=== PATIENT | female | born 1965 | race Caucasian/White ===

== ENCOUNTER 2018-11-22 07:47 | Emergency (ER) | payer OTHER ==
[2018-11-22] MEDS ORDERED: KETOROLAC 30 MG/ML VIAL IM STA (08:54)
[2018-11-22] MEDS ORDERED: DEXAMETHASONE 10 MG/ML VIAL PO STA (08:54)
[2018-11-22] MEDS ORDERED: CHERRY SYRUP 10 ML UDC PO ONE (08:54)
--- NOTE | 2018-11-22 08:57 | ED Physician Documentation ---
PD HPI BACK INJURY - Stated complaint Stated Complaint: BACK PX - History obtained from History obtained from: Patient - History of Present Illness Location: Left, Upper, Lower Type of injury: Fall Where injury occurred: Home Timing - onset: How many days ago (3) Timing - duration: Days (3) Timing - details: Abrupt onset, Still present Quality: Pain, Spasm, Sharp Improved by: Rest, Immobilization Worsened by: Moving, Palpating Associated symptoms: No: Fever, Weakness, Numbness, Incontinent of urine, Unable to urinate, Hematuria, Incontinent of stool Similar symptoms before: Has not had sx before Recently seen: Not recently seen - Additional information Additional information: 53-year-old previously healthy female was helping a friend carry a table when she tripped backwards and fell onto her back. She fell onto her buttocks and she is twisted her back she has pain in the left thoracolumbar area with spasm and she is unable to perform her duties at work. She does a lot of physical work. Review of Systems Constitutional: denies: Fever Eyes: denies: Decreased vision Ears: denies: Ear pain Nose: denies: Congestion Throat: denies: Sore throat Respiratory: denies: Cough GI: denies: Abdominal Pain, Nausea, Vomiting : denies: Dysuria, Frequency Skin: denies: Rash Musculoskeletal: reports: Back pain. denies: Neck pain Neurologic: denies: Generalized weakness, Focal weakness, Numbness PD PAST MEDICAL HISTORY - Past Medical History Past Medical History: No - Past Surgical History Past Surgical History: No - Present Medications Home Medications: Ambulatory Orders Medication Instructions Recorded Confirmed Cyclobenzaprine [Flexeril] 10 mg PO TID PRN #20 tablet 11/22/18 Hydrocodone/Acetaminophen 1 - 2 each PO Q6H PRN #14 tablet 11/22/18 [Hydrocodon-Acetaminophen 5-325] - Allergies Allergies/Adverse Reactions: Allergies Allergy/AdvReac Type Severity Reaction Status Date / Time No Known Drug Allergies Allergy Verified 11/22/18 07:53 - Social History Does the pt smoke?: Yes Smoking Status: Current every day smoker Does the pt drink ETOH?: Yes ETOH Use: Beer Does the pt have substance abuse?: No - Immunizations Immunizations are current?: Yes PD ED PE NORMAL - Vitals Vital signs reviewed: Yes (hypertensive ) - General General: Alert and oriented X 3, No acute distress, Well developed/nourished, Other (standing is position of comfort) - HEENT HEENT: Atraumatic, PERRL, EOMI - Neck Neck: Supple, no meningeal sign - Cardiac Cardiac: RRR, Other (2/6 holosystolic murmer at LSB) - Respiratory Respiratory: No respiratory distress, Clear bilaterally - Abdomen Abdomen: Soft, Non tender - Back Back: No CVA TTP, No spinal TTP, Other (There is paraspinous muscle tenderness and spasm to the left thoraco-lumbar paraspinous muscles. 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, No motor deficit, No sensory deficit, Normal speech Eye Opening: Spontaneous Motor: Obeys Commands Verbal: Oriented GCS Score: 15 - Psych Psych: Normal mood, Normal affect Results - Vitals Vitals: Vital Signs - 24 hr 11/22/18 07:49 Temperature 36.8 C Heart Rate 95 Respiratory 18 Rate Blood Pressure 173/113 H O2 Saturation 99 Oxygen O2 Source Room air PD MEDICAL DECISION MAKING - ED course Complexity details: considered differential, d/w patient ED course: 53-year-old female with thoracolumbar back spasm after a fall is administered Dex Methasone 10 mg orally Toradol 30 mg IM and we will place her on some pain medication muscle relaxants and off work for 5 days. Departure - Departure Disposition: 01 Home, Self Care Clinical Impression: Acute thoracic myofascial strain Qualifiers: Encounter type: initial encounter Qualified Code(s): S29.019A - Strain of muscle and tendon of unspecified wall of thorax, initial encounter Acute lumbar myofascial strain Qualifiers: Encounter type: initial encounter Qualified Code(s): S39.012A - Strain of muscle, fascia and tendon of lower back, initial encounter Condition: Stable Instructions: ED Sprain Strain Lumbar, ED Sprain Thoracic Spine Follow-Up: [facility] [Provider Group] Prescriptions: Cyclobenzaprine [Flexeril] 10 mg PO TID PRN #20 tablet PRN Reason: Spasms Hydrocodone/Acetaminophen [Hydrocodon-Acetaminophen 5-325] 1 - 2 each PO Q6H PRN #14 tablet PRN Reason: pain Forms: Activity restrictions
[2018-11-22 09:33] VITALS: BP 153/112
== END 2018-11-22 09:33 | disposition home or self-care (01) ==
LOC: ED 07:47
DX: S29.019A Strain of muscle and tendon of unspecified wall of thorax, initial encounter (principal); S39.012A Strain of muscle, fascia and tendon of lower back, initial encounter; W01.0XXA Fall on same level from slipping, tripping and stumbling without subsequent striking against object, initial encounter; Y93.89 Activity, other specified; Y92.009 Unspecified place in unspecified non-institutional (private) residence as the place of occurrence of the external cause; F17.200 Nicotine dependence, unspecified, uncomplicated
CPT/HCPCS: 96372; 99283; 99284; A9270

== ENCOUNTER 2020-06-06 12:11 | Emergency (ER) | payer OTHER ==
[2020-06-06 12:26] VITALS: BP 198/99
[2020-06-06] MEDS ORDERED: KETOROLAC 60 MG/2 ML VIAL IM STA (12:41)
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
== END 2020-06-06 14:13 | disposition home or self-care (01) ==
LOC: ED 12:11
DX: S22.31XA Fracture of one rib, right side, initial encounter for closed fracture (principal); T74.11XA Adult physical abuse, confirmed, initial encounter; Y07.01 Husband, perpetrator of maltreatment and neglect; Y04.2XXA Assault by strike against or bumped into by another person, initial encounter; F17.200 Nicotine dependence, unspecified, uncomplicated
CPT/HCPCS: 96372; 99283; 99284

== ENCOUNTER 2022-03-20 08:00 | Outpatient (CLI) | payer OTHER ==
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
== END 2022-03-20 08:01 | disposition home or self-care (01) ==
LOC: DI.S 08:00
PROVIDERS: ATTEND Physician Assistant Medical
DX: S40.012A Contusion of left shoulder, initial encounter (principal); M19.012 Primary osteoarthritis, left shoulder